=== PATIENT | female | born 1990 | race Two or more races ===

== ENCOUNTER → 2020-01-13 | Outpatient (CLI) | payer OTHER | END | disposition home or self-care (01) | LOC: PRENATAL 13:00 | PROVIDERS: ATTEND Obstetrics & Gynecology Maternal & Fetal Medicine | DX: O35.3XX0 Maternal care for (suspected) damage to fetus from viral disease in mother, not applicable or unspecified (principal); Z36.89 Encounter for other specified antenatal screening ==

== ENCOUNTER 2020-05-08 04:38 | Inpatient (IN) | payer OTHER ==
[~2020-05-08] VITALS: Ht 167.6 cm; Wt 69.4 kg
[2020-05-08] MEDS ORDERED: AMPICILLIN SOD500 MG PO (04:48)
[2020-05-08] MEDS ORDERED: PRENATAL TABLE1 EAC1 PO (04:48)
== END 2020-05-10 15:55 | DRG 806 ==
LOC: OB/GYN 04:38 → LDR 04:38 → OB/GYN 11:00
PROVIDERS: ADMIT Obstetrics & Gynecology; ATTEND Obstetrics & Gynecology
PROC: 10E0XZZ Delivery of Products of Conception, External Approach (ICD-10-PCS; principal; 2020-05-08)
PROC: 0UQMXZZ Repair Vulva, External Approach (ICD-10-PCS; 2020-05-08)
PROC: 4A1HXCZ Monitoring of Products of Conception, Cardiac Rate, External Approach (ICD-10-PCS; 2020-05-08)
DX: O71.82 Other specified trauma to perineum and vulva (principal); O99.113 Other diseases of the blood and blood-forming organs and certain disorders involving the immune mechanism complicating pregnancy, third trimester; Z37.0 Single live birth; Z3A.39 39 weeks gestation of pregnancy; Z22.330 Carrier of Group B streptococcus; D69.49 Other primary thrombocytopenia